=== PATIENT | male | born 1985 | race Caucasian/White ===

== ENCOUNTER 2021-11-28 20:00 | Outpatient (CLI) | payer OTHER, SELFPAY | END 2021-11-28 20:01 | disposition home or self-care (01) | LOC: SLEEP 11-29 06:35 | PROVIDERS: PCP Family Medicine; Visit Provider Nurse Practitioner Family | DX: G47.33 Obstructive sleep apnea (adult) (pediatric) (principal) | CPT/HCPCS: 95810 ==

== ENCOUNTER 2021-12-31 20:00 | Outpatient (CLI) | payer OTHER, SELFPAY | END 2021-12-31 20:01 | disposition home or self-care (01) | LOC: SLEEP 01-01 06:29 | PROVIDERS: PCP Family Medicine; Visit Provider Nurse Practitioner Family | DX: G47.33 Obstructive sleep apnea (adult) (pediatric) (principal) | CPT/HCPCS: 95811 ==